=== PATIENT | male | born 1985 | race Two or more races ===

== ENCOUNTER 2021-02-23 13:29 | Inpatient (IN) | payer OTHER ==
[2021-02-23] MEDS ORDERED: methaDONE HCL 10 MG TABLET (FOR DETOX USE ONLY) PO ONE (15:21)
[2021-02-23] MEDS ORDERED: MENTHOL/PHENOL 1 EACH UD MM PRN (15:21)
[2021-02-23] MEDS ORDERED: BISMUTH SUBSALICYLATE 524 MG/30 ML PO PRN (15:21)
[2021-02-23] MEDS ORDERED: MAGNESIUM CITRATE 300 ML BOTTLE PO PRN (15:21)
[2021-02-23] MEDS ORDERED: MAGNESIUM HYDROX 2400MG/30ML ORAL SUSPENSION 30 ML CUP PO PRN (15:21)
[2021-02-23] MEDS ORDERED: ONDANSETRON *ODT* 4 MG TABLET SL PRN (15:21)
[2021-02-23] MEDS ORDERED: ACETAMINOPHEN 325 MG TABLET (FP) PO PRN ×2 (15:21)
[2021-02-23] MEDS ORDERED: MAG HYDROX/AL HYDROX/SIMETH 30 ML UNIT-DOSE CUP PO PRN (15:21)
[2021-02-23 16:24] VITALS: BMI 24.3
[2021-02-23] MEDS: hydrOXYzine PAMOATE 25 MG CAPSULE (FP) PO SCH ×2 (18:31→22:57)
[2021-02-23] MEDS: MELATONIN 5 MG TABLETS PO SCH (22:57)
[2021-02-23] MEDS: THIAMINE HCL 100 MG TABLET (FP) PO SCH (22:57)
[2021-02-24] MEDS: hydrOXYzine PAMOATE 25 MG CAPSULE (FP) PO SCH ×5 (06:18→22:53)
[2021-02-24] MEDS ORDERED: methaDONE HCL 10 MG TABLET (FOR DETOX USE ONLY) ONE (09:33)
[2021-02-24] MEDS: PRENATAL VITAMINS W/ FOLIC ACID TABLET (FP) PO SCH (10:02)
[2021-02-24] MEDS: METHOCARBAMOL 500 MG TABLET PO PRN (10:02)
[2021-02-24 13:42] LABS: HEMATOCRIT 30.5 % (35.4-49); HEMOGLOBIN 9.8 GM/dL (11.7-16.9); MCH 26.5 pg (25.7-33.7); MEAN CELL VOLUME 82.9 fl (80-96); MEAN PLT VOLUME 8.9 fl (7.5-11.1); PLATELET COUNT 168 10^3/uL (134-434); RBC 3.68 M/mm3 (4.00-5.60); RDW 14.1 % (11.9-15.9)
[2021-02-24 14:01] LABS: CALCIUM 9.5 mg/dL (8.5-10.1)
[2021-02-24 14:02] LABS: ALBUMIN 3.3 g/dl (3.4-5.0)
[2021-02-24 14:05] LABS: CREATININE 1.1 mg/dL (0.55-1.3)
[2021-02-24 14:06] LABS: BILIRUBIN,TOTAL 0.4 mg/dL (0.2-1)
[2021-02-24] MEDS: NICOTINE 10 MG CARTRIDGE (INHALER) IH PRN (14:37)
[2021-02-24] MEDS: cloNIDine HCL 0.1 MG TABLET PO PRN (22:53)
[2021-02-24] MEDS: THIAMINE HCL 100 MG TABLET (FP) PO SCH (22:53)
[2021-02-24] MEDS: MELATONIN 5 MG TABLETS PO SCH (22:53)
[2021-02-25] MEDS: hydrOXYzine PAMOATE 25 MG CAPSULE (FP) PO SCH ×5 (06:58→22:04)
[2021-02-25] MEDS ORDERED: methaDONE HCL 10 MG TABLET (FOR DETOX USE ONLY) PO ONE (10:00)
[2021-02-25] MEDS: PRENATAL VITAMINS W/ FOLIC ACID TABLET (FP) PO SCH (10:07)
[2021-02-25] MEDS: METHOCARBAMOL 500 MG TABLET PO PRN ×2 (10:07→22:04)
[2021-02-25] MEDS: cloNIDine HCL 0.1 MG TABLET PO PRN (10:07)
[2021-02-25] MEDS: NICOTINE 10 MG CARTRIDGE (INHALER) IH PRN (18:35)
[2021-02-25] MEDS: THIAMINE HCL 100 MG TABLET (FP) PO SCH (22:04)
[2021-02-25] MEDS: MELATONIN 5 MG TABLETS PO SCH (22:04)
[2021-02-25] MEDS: IBUPROFEN 400 MG TABLET (FP) PO PRN (22:05)
[2021-02-26] MEDS: hydrOXYzine PAMOATE 25 MG CAPSULE (FP) PO SCH ×5 (05:25→22:21)
[2021-02-26] MEDS: METHOCARBAMOL 500 MG TABLET PO PRN ×2 (05:26→10:29)
[2021-02-26] MEDS ORDERED: methaDONE HCL 10 MG TABLET (FOR DETOX USE ONLY) ONE (10:00)
[2021-02-26] MEDS: IBUPROFEN 400 MG TABLET (FP) PO PRN (10:29)
[2021-02-26] MEDS: PRENATAL VITAMINS W/ FOLIC ACID TABLET (FP) PO SCH (10:30)
[2021-02-26 13:34] LABS: ALBUMIN 3.3 g/dl (3.4-5.0)
[2021-02-26 13:35] LABS: BILIRUBIN,DIRECT 0.1 mg/dL (0.0-0.2)
[2021-02-26 13:38] LABS: BILIRUBIN,TOTAL 0.3 mg/dL (0.2-1); TOT PROT 6.7 g/dl (6.4-8.2)
[2021-02-26] MEDS: NICOTINE 10 MG CARTRIDGE (INHALER) IH PRN (16:42)
[2021-02-26] MEDS: THIAMINE HCL 100 MG TABLET (FP) PO SCH (22:21)
[2021-02-26] MEDS: MELATONIN 5 MG TABLETS PO PRN (22:22)
[2021-02-27] MEDS: hydrOXYzine PAMOATE 25 MG CAPSULE (FP) PO SCH ×2 (06:55→11:21)
[2021-02-27] MEDS: IBUPROFEN 400 MG TABLET (FP) PO PRN (06:58)
[2021-02-27] MEDS ORDERED: methaDONE HCL 10 MG TABLET (FOR DETOX USE ONLY) PO ONE (10:00)
[2021-02-27] MEDS: PRENATAL VITAMINS W/ FOLIC ACID TABLET (FP) PO SCH (11:21)
[2021-02-27] MEDS ORDERED: hydrOXYzine PAMOATE 25 MG CAPSULE (FP) PO PRN (12:30)
[2021-02-27] MEDS: MELATONIN 5 MG TABLETS PO PRN (22:13)
[2021-02-27] MEDS: THIAMINE HCL 100 MG TABLET (FP) PO SCH (22:13)
[2021-02-28] MEDS: IBUPROFEN 400 MG TABLET (FP) PO PRN (06:01)
[2021-02-28 07:08] VITALS: TEMP 97.1
[2021-02-28 09:26] VITALS: BP 129/66; PULSE 69
[2021-02-28] MEDS: PRENATAL VITAMINS W/ FOLIC ACID TABLET (FP) PO SCH (11:07)
== END 2021-02-28 10:17 | disposition home or self-care (01) | DRG 773 ==
LOC: YASAS 13:29 → Y3N 17:03
PROVIDERS: ADMIT Allergy & Immunology; ATTEND Allergy & Immunology
PROC: HZ2ZZZZ Detoxification Services for Substance Abuse Treatment (ICD-10-PCS; principal; 2021-02-23)
DX: F11.23 Opioid dependence with withdrawal (principal); F17.210 Nicotine dependence, cigarettes, uncomplicated; D64.9 Anemia, unspecified; R74.01 Elevation of levels of liver transaminase levels; Z59.01 Sheltered homelessness
CPT/HCPCS: 36415; 80053; 80076; 85027; 86780; 87522; C9803; J0735; U0003; U0005